=== PATIENT | male | born 1955 | race Caucasian/White ===

== ENCOUNTER 2023-10-23 15:15 | Inpatient (IN) | payer BC ==
[2023-10-23 15:45] VITALS: BMI 26.4
[2023-10-23] MEDS ORDERED: BENZONATATE 200 MG CAPSULE PO PRN (18:26)
[2023-10-23] MEDS ORDERED: LOPERAMIDE HCL 2 MG CAPSULE PO PRN (18:26)
[2023-10-23] MEDS ORDERED: ACETAMINOPHEN 325 MG TABLET (FP) PO PRN (18:26)
[2023-10-23] MEDS ORDERED: NALOXONE HCL 0.4 MG/ML VIAL IM PRN (18:26)
[2023-10-23] MEDS ORDERED: IBUPROFEN 600 MG TABLET (FP) PO PRN (18:26)
[2023-10-23] MEDS ORDERED: MAGNESIUM HYDROX 2400MG/30ML ORAL SUSPENSION 30 ML CUP PO PRN (18:26)
[2023-10-23] MEDS ORDERED: guaiFENesin 600 MG TABLET.ER (FP) PO PRN (18:26)
[2023-10-23] MEDS ORDERED: POLYETHYLENE GLYCOL (HEALTHYLAX) 3350 17 GM PACKET PO PRN (18:26)
[2023-10-23] MEDS ORDERED: IBUPROFEN 400 MG TABLET (FP) PO PRN (18:26)
[2023-10-23] MEDS ORDERED: DICYCLOMINE HCL 10 MG CAPSULE PO PRN (18:26)
[2023-10-23] MEDS ORDERED: ONDANSETRON *ODT* 4 MG TABLET SL PRN (18:26)
[2023-10-23] MEDS ORDERED: BENZOCAINE/MENTHOL (CHLORASEPTIC ) LOZENGE MM PRN (18:26)
[2023-10-23] MEDS ORDERED: NALOXONE (NARCAN) HCL 4 MG/0.1 ML SPRAY NS PRN (18:26)
[2023-10-23] MEDS ORDERED: BISMUTH SUBSALICYLATE 524 MG/30 ML PO PRN (18:26)
[2023-10-23] MEDS ORDERED: MAG HYDROX/AL HYDROX/SIMETH 30 ML UNIT-DOSE CUP PO PRN (18:26)
[2023-10-23] MEDS ORDERED: diazePAM 5 MG TABLET ONE (19:05)
[2023-10-23] MEDS: diazePAM 5 MG TABLET PO PRN (19:08)
[2023-10-23] MEDS: THIAMINE 100 MG TABLET PO SCH (22:14)
[2023-10-23] MEDS: MELATONIN 5 MG TABLETS PO SCH (22:14)
[2023-10-23] MEDS: METHOCARBAMOL 500 MG TABLET PO PRN (22:14)
[2023-10-23] MEDS: diazePAM 5 MG TABLET PO SCH (22:14)
[2023-10-24] MEDS: PRENATAL VITAMINS W/ FOLIC ACID TABLET (FP) PO SCH (09:24)
[2023-10-24 11:41] LABS: HEMATOCRIT 43.1 % (35.4-49); HEMOGLOBIN 14.9 GM/dL (11.7-16.9); MCH 32.9 pg (25.7-33.7); MCHC 34.6 g/dl (32.0-35.9); MEAN CELL VOLUME 95.2 fl (80-96); MEAN PLT VOLUME 9.6 fl (7.5-11.1); PLATELET COUNT 58 10^3/uL (134-434); RBC 4.53 M/mm3 (4.00-5.60); RDW 13.6 % (11.9-15.9); WHITE BLOOD COUNT 21.7 K/mm3 (4.0-10.0)
[2023-10-24 13:01] LABS: CHLORIDE 96 mmol/L (98-107); SODIUM 134 mmol/L (136-145)
[2023-10-24 13:04] LABS: ALBUMIN 4.2 g/dl (3.4-5.0); ANION GAP 12 mmol/L (4-13); BLOOD UREA NITROGEN 21.7 mg/dL (7-18); CO2 26 mmol/L (21-32); GLUCOSE,RANDOM 137 mg/dL (74-106)
[2023-10-24 13:07] LABS: CREATININE 1.1 mg/dL (0.55-1.3); SGOT/AST 320 U/L (15-37); SGPT/ALT 180 U/L (13-61)
[2023-10-24 13:09] LABS: TOT PROT 9.1 g/dl (6.4-8.2)
[2023-10-24 13:10] LABS: ALK PHOS 51 U/L (45-117)
[2023-10-24 13:20] LABS: BILIRUBIN,TOTAL 2.4 mg/dL (0.2-1)
[2023-10-24] MEDS: hydrOXYzine PAMOATE 25 MG CAPSULE (FP) PO PRN (17:11)
[2023-10-25] MEDS: diazePAM 5 MG TABLET PO SCH (05:29)
[2023-10-25] MEDS: cloNIDine HCL 0.1 MG TABLET PO ONE (12:19)
[2023-10-25] MEDS: LACTULOSE 20 GM/30 ML UDC (FOR ORAL USE ONLY) PO SCH (13:18)
[2023-10-25] MEDS: cloNIDine HCL 0.1 MG TABLET PO PRN (17:15)
[2023-10-26] MEDS: diazePAM 5 MG TABLET PO SCH (05:35)
[2023-10-26 06:11] VITALS: RESP 16
[2023-10-26 08:49] VITALS: BP 137/85; PULSE 93; TEMP 97.8
[2023-10-26] MEDS ORDERED: SERTRALINE HCL 50 MG TABLET (FP) PO SCH (10:00)
[2023-10-27] MEDS ORDERED: diazePAM 5 MG TABLET PO ONE (06:00)
== END 2023-10-26 09:11 | disposition home or self-care (01) | DRG 897 ==
LOC: YASAS 15:15 → Y3N 19:28
PROVIDERS: ADMIT Allergy & Immunology; ATTEND Surgery
PROC: HZ2ZZZZ Detoxification Services for Substance Abuse Treatment (ICD-10-PCS; principal; 2023-10-23)
DX: F10.230 Alcohol dependence with withdrawal, uncomplicated (principal); E11.9 Type 2 diabetes mellitus without complications; E78.5 Hyperlipidemia, unspecified; K21.9 Gastro-esophageal reflux disease without esophagitis; Z96.642 Presence of left artificial hip joint; Z79.84 Long term (current) use of oral hypoglycemic drugs; Z56.0 Unemployment, unspecified
CPT/HCPCS: 36415; 80053; 80305; 80307; 82962; 85027; 86780; 93005; 93010